=== PATIENT | male | born 1930 | race Caucasian/White ===

== ENCOUNTER 2017-06-16 05:22 | Day surgery (SDC) | payer OTHER, BC ==
[~2017-06-16] VITALS: Ht 167.6 cm; Wt 72.5 kg
[~2017-06-16 05:22] MED LIST: LIPITOR80 MG PO; LO-DOSE ASPIRIN81 M1 PO; LOPRESSOR50 MG PO; PLAVIX75 MG PO; ZESTRIL20 MG PO
[2017-06-16 05:58] VITALS: BP 143/73
[2017-06-16] MEDS ORDERED: HYDROCODON-ACE1 EAC9 PO (10:22)
[2017-06-16] MEDS ORDERED: DIAZEPAM10 MG PO (10:22)
[2017-06-16 14:57] VITALS: BP 119/66
[2017-06-16 20:08] VITALS: BP 101/62
[2017-06-17 00:30] VITALS: BP 104/59
[2017-06-17 03:36] VITALS: BP 98/51
[2017-06-17 07:53] VITALS: BP 121/65
== END 2017-06-17 11:21 | disposition home or self-care (01) ==
LOC: SDC 05:22 → ENRESERV 10:25 → 2SOUTH 10:30 → SDC 12:13 → ENRESERV 12:59 → 3EAST 14:17 → SDC 15:37 → 3EAST 06-17 11:21
PROC: 01NB0ZZ Release Lumbar Nerve, Open Approach (ICD-10-PCS; principal; 2017-06-16)
DX: M48.061 Spinal stenosis, lumbar region without neurogenic claudication (principal); M51.16 Intervertebral disc disorders with radiculopathy, lumbar region; I73.9 Peripheral vascular disease, unspecified; E78.00 Pure hypercholesterolemia, unspecified; I10 Essential (primary) hypertension; Z95.1 Presence of aortocoronary bypass graft; Z79.82 Long term (current) use of aspirin
CPT/HCPCS: 72100; 76000; G0378; J0131; J0690; J1100; J2405; J2704; J3010; J3480